=== PATIENT | female | born 1975 ===

== ENCOUNTER 2018-01-28 10:13 | Emergency (ER) | payer BC ==
--- NOTE | 2018-01-28 10:22 | UC ---
Dizzy HPI HPI Summary: onset of nausea and vertigo while at work today---no neuro deficits---does have sinus and ear congestion-- - History Of Current Complaint Chief Complaint: UCDizziness Stated Complaint: DIZZY,SWEATING Time Seen by Provider: 01/28/18 10:22 Hx Obtained From: Patient Hx Last Menstrual Period: Last week 03/14/13 ?: No Onset/Duration: Sudden Onset Timing: Constant Severity Initially: Moderate Severity Currently: Moderate Character: Room Spinning Aggravating Factor(s): Position Change Alleviating Factor(s): Nothing Associated Signs And Symptoms: Positive: Nausea - Allergies/Home Medications Allergies/Adverse Reactions: Allergies Allergy/AdvReac Type Severity Reaction Status Date / Time Sulfa (Sulfonamide Allergy Hives Verified 01/28/18 10:23 Antibiotics) Home Medications: Home Medications Dextromethorphan-Guaifenesin [Dextromethorphan/Guaifene 10-100 mg/5Ml] 1 paras PO ONCE 01/28/18 [History Confirmed 01/28/18] PMH/Surg Hx/FS Hx/Imm Hx Previously Healthy: Yes - Surgical History Surgical History: Yes Surgery Procedure, Year, and Place: C section at age 15 - Family History Known Family History: Positive: None - Social History Occupation: Employed Full-time Lives: With Family Alcohol Use: None Substance Use Type: None Smoking Status (MU): Never Smoked Tobacco Review of Systems Constitutional: Negative Skin: Negative Eyes: Negative ENT: Nasal Discharge, Sinus Congestion Respiratory: Negative Cardiovascular: Negative Gastrointestinal: Negative Genitourinary: Negative Motor: Negative Neurovascular: Negative Musculoskeletal: Negative Neurological: Negative, Other - vertigo Psychological: Negative Is Patient Immunocompromised?: No All Other Systems Reviewed And Are Negative: Yes Physical Exam Triage Information Reviewed: Yes Appearance: Well-Appearing, No Pain Distress, Well-Nourished Vital Signs Reviewed: Yes Eye Exam: Normal Eyes: Positive: Conjunctiva Clear, Other: - perrla, eomi--no nystagmus elicited ENT Exam: Normal ENT: Positive: Normal ENT inspection, Hearing grossly normal, Pharynx normal, Nasal congestion, TMs normal, Uvula midline. Negative: Tonsillar swelling, Tonsillar exudate, Trismus, Muffled voice, Hoarse voice, Dental tenderness, Sinus tenderness Dental Exam: Normal Neck exam: Normal Neck: Positive: Supple, Nontender, No Lymphadenopathy Respiratory Exam: Normal Respiratory: Positive: Chest non-tender, Lungs clear, Normal breath sounds, No respiratory distress, No accessory muscle use Cardiovascular Exam: Normal Cardiovascular: Positive: RRR, No Murmur, Pulses Normal, Brisk Capillary Refill Musculoskeletal Exam: Normal Musculoskeletal: Positive: Strength Intact, ROM Intact, No Edema Neurological Exam: Normal Neurological: Positive: Alert, Muscle Tone Normal Psychological Exam: Normal Skin Exam: Normal Dizzy Course/Dx - Course Course Of Treatment: eply, zofran and antivert with complete resolution of symptoms---will rest use medications prn follow with pcp 2 days - Differential Dx/Diagnosis Provider Diagnoses: BPPV Discharge - Sign-Out/Discharge Documenting (check all that apply): Patient Departure - Discharge Plan Condition: Stable Disposition: HOME Prescriptions: Meclizine TAB* [Antivert 12.5 TAB*] 25 mg PO TID PRN #25 tab PRN Reason: vertigo Ondansetron ODT TAB* [Zofran 4 MG Odt TAB*] 4 mg PO Q6H PRN #16 tab.odt PRN Reason: Nausea Patient Education Materials: Vertigo (ED), Benign Paroxysmal Positional Vertigo (ED) Forms: *Work Release Referrals: [facility] [Outside] [facility] [Outside] - 3 Days Marsha Lopez MD [Medical Doctor] - 2 Days - Billing Disposition and Condition Condition: STABLE Disposition: Home
[2018-01-28 10:29] VITALS: BP 135/91
[2018-01-28] MEDS ORDERED: Meclizine TAB* 12.5 MG PO ONE (10:41)
[2018-01-28] MEDS ORDERED: Ondansetron ODT TAB* 4 MG PO ONE (10:41)
== END 2018-01-28 11:40 | disposition home or self-care (01) ==
LOC: UCEAST 10:13
DX: H81.10 Benign paroxysmal vertigo, unspecified ear (principal); R11.0 Nausea; R09.81 Nasal congestion; Z88.2 Allergy status to sulfonamides
CPT/HCPCS: 99202; A9270-GY; G0463

== ENCOUNTER 2018-08-04 10:11 | Emergency (ER) | payer BC ==
[2018-08-04 10:18] VITALS: BP 139/95
--- NOTE | 2018-08-04 10:46 | UC ---
Respiratory Complaint HPI - HPI Summary HPI Summary: 43 y/o female presents to the urgent care c/o sinus congestion, w/ yellowish nasal discharge, sinus pain, PND and dizziness for the past week. Pt reports she has Hx of Vertigo. She states her boss has been Dx w/ Walking pneumonia and every body at work has the cold. Pt states she has been OTC medications to alleviate symptoms w/o any improvement. She also has a productive cough since yesterday. Pt denies fever, SOB, chest pain, abdominal pain, N/V/D. - History of Current Complaint Chief Complaint: UCRespiratory Stated Complaint: DIZZINESS Time Seen by Provider: 08/04/18 10:44 Hx Obtained From: Patient Hx Last Menstrual Period: 3 months ago ?: No Onset/Duration: Gradual Onset, Lasting Weeks - 1 week, Still Present, Worse Since - yesterday Timing: Constant Severity Initially: Mild Severity Currently: Moderate Pain Intensity: 2 Pain Scale Used: 0-10 Numeric Character: Cough: Productive, Sputum Description: - yellowish Aggravating Factors: Recumbent Position Alleviating Factors: OTC Meds Associated Signs And Symptoms: Positive: Fever, Chills, Dizziness, URI, Nasal Congestion, Sinus Discomfort. Negative: Dyspnea, Wheezing - Risk Factors Pulmonary Embolism Risk Factors: Negative Cardiac Risk Factors: Negative Pseudomonas Risk Factors: Negative Tuberculosis Risk Factors: Negative - Allergies/Home Medications Allergies/Adverse Reactions: Allergies Allergy/AdvReac Type Severity Reaction Status Date / Time Sulfa (Sulfonamide Allergy Hives Verified 08/04/18 10:18 Antibiotics) PMH/Surg Hx/FS Hx/Imm Hx Previously Healthy: Yes Neurological History: Other - vertigo - Surgical History Surgical History: Yes Surgery Procedure, Year, and Place: C section at age 15 - Family History Known Family History: Positive: None - Pt denies FMHX - Social History Occupation: Employed Full-time Lives: With Family Alcohol Use: Occasionally Substance Use Type: None Smoking Status (MU): Heavy Every Day Tobacco Smoker Amount Used/How Often: 1 PPD Review of Systems All Other Systems Reviewed And Are Negative: Yes Constitutional: Positive: Negative Skin: Positive: Negative Eyes: Positive: Negative ENT: Positive: Ear Ache - B/L ear pressure, Nasal Discharge - yellowish, Sinus Congestion, Sinus Pain/Tenderness, Other - dizziness Respiratory: Positive: Cough - productive w/ yellowish phlegm Cardiovascular: Positive: Negative Gastrointestinal: Positive: Negative Genitourinary: Positive: Negative Motor: Positive: Negative Neurovascular: Positive: Negative Musculoskeletal: Positive: Myalgia Neurological: Positive: Headache Psychological: Positive: Negative Is Patient Immunocompromised?: No Physical Exam - Summary Physical Exam Summary: Vital Signs Reviewed: Yes General: well developed, well nourished female sitting in the examining table w/ o any apparent distress Eyes: Positive: Conjunctiva Clear - PERRLA, EOMI, fundi grossly normal ENT: Positive: Normal ENT inspection, Hearing grossly normal, Pharynx normal, Nasal congestion - edematous and erythematous nasal mucosa, Nasal drainage - yellowish drainage, TMs normal. Negative: Tonsillar swelling, Tonsillar exudate Neck: Positive: Supple, Nontender, No Lymphadenopathy Respiratory: no orthopnea or dyspnea. Able to speak in full sentences, no retractions or accessory muscle use, no tripod position, stridor, or head bobbing. Positive breath sounds bilaterally. Mild posterior upper lungs w/ scattered rhonchi, no wheezes, no crackles or rales. Cardiovascular: Positive: RRR, No Murmur, Pulses Normal, Brisk Capillary Refill Abdomen Description: Positive: Nontender, No Organomegaly, Soft. Negative: CVA Tenderness (R), CVA Tenderness (L) Bowel Sounds: Positive: Present Musculoskeletal Exam: Normal Musculoskeletal: Positive: Strength Intact, ROM Intact, No Edema Neurological Exam: Normal Psychological Exam: Normal Skin Exam: Normal Triage Information Reviewed: Yes Vital Signs: Initial Vital Signs Temp 97.8 F 08/04/18 10:15 Pulse 76 08/04/18 10:15 Resp 16 08/04/18 10:15 BP 139/95 08/04/18 10:15 Pulse Ox 99 08/04/18 10:15 Diagnostic Evaluation - Laboratory O2 Sat by Pulse Oximetry: 99 Respiratory Course/Dx - Course Course Of Treatment: 43 y/o female presents to the urgent care c/o sinus congestion, w/ yellowish nasal discharge, sinus pain, PND and dizziness for the past week. Pt reports she has Hx of Vertigo. She states her boss has been Dx w/ Walking pneumonia and every body at work has the cold. Pt states she has been OTC medications to alleviate symptoms w/o any improvement. She also has a productive cough since yesterday. Pt denies fever, SOB, chest pain, abdominal pain, N/V/D. Hx obtained. Pt w/ Acute bacterial sinusitis one examination. Rapid influenza A&B:negative. Chest X-ray ordered since patient exposed to pneumonia. No active cardiopulnonary disease observed. Pt with 1 week of symptoms getting worse. Pt Rx Augmentin PO PO and flonase nasal spray and Meclizine for her vertigo. Pt given a referral w/ ENT Dr Albarado and advised to f/ u w/ him for further management in her Vertigo since her Vertigo has been exacerbated lately in the past year. Pt's BP is elevated today advised to decrease salt in diet, monitor BP and f/u with PCP for further management. Discharge instructions explained to Pt. Advised to Return to the clinic or PCP if symptoms do not improve.Pt understood and agreed with plan of care. - Differential Dx/Diagnosis Differential Diagnosis/HQI/PQRI: Asthma, Bronchitis, Influenza, Laryngitis, Lower Resp Infection, Sinusitis, Other - pneumonia Provider Diagnosis: Acute bacterial sinusitis, Elevated BP without diagnosis of hypertension, Vertigo Discharge - Sign-Out/Discharge Documenting (check all that apply): Patient Departure - d/c home All imaging exams completed and their final reports reviewed: Yes - Discharge Plan Condition: Stable Disposition: HOME Prescriptions: Amoxicillin/Clavulanate TAB* [Augmentin TAB 875*] 875 mg PO BID #20 tab Fluticasone NASAL SPRAY 50MCG* [Flonase NASAL SPRAY 50MCG*] 2 spray BOTH NARES DAILY #1 btl Meclizine TAB* [Antivert 12.5 TAB*] 25 mg PO TID #21 tab Patient Education Materials: Sinusitis (ED), Vertigo (ED) Forms: *Work Release Referrals: [facility] [Outside] - 3 Days Lisandro Albarado MD [Medical Doctor] - 1 Week Additional Instructions: 1- Please increase fluid intake and rest. take full course of antibiotic to avoid resistance 2-Use Flonase as directed to help drain fluid. Also buy saline drops to clear sinuses 3-Take Meclizine PO to alleviates your dizziness. Please if vertigo persists please w/u w/ ENT Dr Albarado for further evaluation and treatment 4-Return to the clinic or PCP in 3 days if symptoms do not improve for further management and treatment 5- Your BP is elevated today. please decrease salt in your diet, monitor BP and if it continues to be elevated please f/u with your PCP for further management. - Billing Disposition and Condition Condition: STABLE Disposition: Home - Attestation Statements Provider Attestation: Per institutional requirements, I have reviewed the chart, however, I was not consulted specifically or made aware of this patient by the midlevel provider. I did not personally evaluate, interact with , or disposition this patient.
== END 2018-08-04 12:19 | disposition home or self-care (01) ==
LOC: UCEAST 10:11
DX: J01.90 Acute sinusitis, unspecified (principal); B96.89 Other specified bacterial agents as the cause of diseases classified elsewhere; R03.0 Elevated blood-pressure reading, without diagnosis of hypertension; R42 Dizziness and giddiness; F17.210 Nicotine dependence, cigarettes, uncomplicated; Z88.2 Allergy status to sulfonamides
CPT/HCPCS: 71046; 84702; 99212; G0463